=== PATIENT | female | born 1970 | race Two or more races ===

== ENCOUNTER → 2024-07-04 | Outpatient (CLI) | payer MEDICAID, SELFPAY ==
--- NOTE | 2024-07-04 13:20 | XR_ITS ---
Examination: Thyroid sonography complete TECHNIQUE: Grayscale sonographic images thyroid lobes are carful analysis Exam date and time: July 04, 2023 1333 hours INDICATIONS: Thyroid sonogram January 10, 2023 midpole right thyroid nodule 4.5 mm lower pole nodule 3.0 cm, left thyroid upper pole nodule 3.9 cm lower pole nodule extending to the isthmus 7.3 cm FINDINGS: Right thyroid 9.4 x 4.7 x 4.3 cm Multiple thyroid nodules including upper pole nodule 1.8 x 2.1 cm lower pole nodule 2.7 x 2.1 cm Left thyroid 9.6 x 4.2 x 6.6 cm Multiple thyroid nodules including upper pole nodule 2.3 x 2.9 cm and vascular lower pole nodule 5.9 x 4.5 x 4.6 cm IMPRESSION: Multiple thyroid nodules as above Consider ultrasound-guided fine-needle aspiration of the vascular lower pole left thyroid nodule 5.9 x 4.5 x 4.6 cm
--- NOTE | 2024-07-04 13:35 | XR_ITS ---
Examination: Bilateral hands, 6 views. Technique: AP, Oblique, Lateral each hand total 6 views Date and time of exam: July 04, 2024 1357 hours INDICATIONS: Bilateral hand pain 3 years getting worse Findings: Moderate osteopenia No fracture or dislocation involving either hand No erosive or other significant arthritic change involving either hand Mild osteoarthritis right radiocarpal joint Minimal osteoarthritis distal interphalangeal joints second through fifth digits bilaterally IMPRESSION: Osteoarthritis as above
== END | disposition home or self-care (01) ==
LOC: CDIM 12:59
PROVIDERS: PCP Nurse Practitioner Family; Referring Provider Nurse Practitioner Family; Visit Provider Nurse Practitioner Family
DX: E04.2 Nontoxic multinodular goiter (principal); M19.042 Primary osteoarthritis, left hand; M19.041 Primary osteoarthritis, right hand
CPT/HCPCS: 73130; 76536

== ENCOUNTER → 2024-12-03 | Outpatient (CLI) | payer MEDICAID, SELFPAY ==
--- NOTE | 2024-12-03 15:57 | XR_ITS ---
Examination: PA lateral chest 2 views TECHNIQUE: Upright PA and lateral chest 2 views Date and time: December 03, 2024, 1407 hours Comparison October 26, 2021. INDICATIONS: Coughing SOB beginning 3 days ago. FINDINGS: Normal heart size. Lungs are clear. The osseous structures are intact. IMPRESSION: No active disease.
== END | disposition home or self-care (01) ==
PROVIDERS: PCP Nurse Practitioner Family; Referring Provider Nurse Practitioner Family; Visit Provider Nurse Practitioner Family
DX: R05.9 Cough, unspecified (principal); R06.02 Shortness of breath
CPT/HCPCS: 71046